=== PATIENT | male | born 1955 | race Hispanic/Latino ===

== ENCOUNTER 2019-09-02 05:58 | Day surgery (SDC) | payer MEDICARE ==
--- NOTE | 2019-09-01 10:52 | RAD REPORT ---
EXAM DESCRIPTION: Karol Pa And Lat (2 Views)09/01/2019 10:39 am CLINICAL HISTORY: Preop COMPARISON: None FINDINGS: 7 mm nodular opacity overlies the right lung base. The left lung appears clear of acute in filtrate. The heart is normal size IMPRESSION: 7 mm nodular opacity overlying right base may represent a nipple shadow or pulmonary nod ule. It is recommended that the patient have frontal and oblique views of the chest with a nipple mar ker for further evaluation
[2019-09-01 11:00] LABS: Absolute Lymphocytes (CBC) 1.2 K/uL (0.7-4.9); Basophils % 0.6 % (0-1.3); Hematocrit 51.6 % (39.6-49.0); Lymphocytes % 29.3 % (15.3-44.8); MPV 10.4 fL (7.6-11.3); RBC Red Blood Cell Count 5.74 M/uL (4.33-5.43)
[2019-09-01 11:01] LABS: Potassium 4.8 mmol/L (3.5-5.1)
--- NOTE | 2019-09-01 11:25 | EKG ---
Test Date: 2019-09-01 Test Time: 10:20:08 Medicare Specialist: TJ MEASUREMENT RESULTS: Intervals: Rate: 76 WV: 158 QRSD: 92 QT: 412 QTc: 463 Hardy: P: 41 WV: 158 QRS: -2 T: 4 INTERPRETIVE STATEMENTS: Normal sinus rhythm Normal ECG No previous ECG available for comparison Electronically Signed On 09-01-19 11:24:46 [employer] by Willem Draper
--- OUTSIDE RECORDS SUMMARY | 2019-09-02 05:59 | XMS REPORT ---
:1955 Author Organization [employer] Care Team Providers Name Role Phone Nyasia Thomasonh Provider Role Unavailable Allergies, Adverse Reactions, Alerts Substance Reaction Event Type N.K.D.A. Info Not Available Non Drug Allergy Problems Problem Type Condition Code Onset Dates Condition Status Assessment Elevated BP without diagnosis of R03.0 Active hypertension Assessment Encounter for wellness examination Z00.00 Active in adult Assessment Encounter for screening for other Z11.59 Active viral diseases Assessment Need for Tdap vaccination Z23 Active Assessment Need for pneumococcal vaccine Z23 Active Assessment Screening for colon cancer Z12.11 Active Assessment Need for influenza vaccination Z23 Active Medications No Known Medications Results No Known Results Immunizations Vaccine Administration Date TDAP > 7 Years-Adacel Aug 24, 2019 Prevnar 13 -Pneumonia Vaccine Aug 24, 2019 Fluzone Aug 24, 2019 Summary Purpose [employer] Submission
[2019-09-02] MEDS ORDERED: Ringers Lactate 1,000 ML IV ONE (06:22)
[2019-09-02] MEDS ORDERED: EPHEDRINE SULF 50 MG/ML VIAL ONE (06:43)
[2019-09-02] MEDS ORDERED: LIDOCAINE 1% MPF 2 ML AMPULE ONE (06:43)
[2019-09-02] MEDS ORDERED: propofoL 200 MG/20 ML VIAL IV ONE (06:43)
[2019-09-02] MEDS ORDERED: GLYCOPYRROLATE 0.2 MG/ML SYR ONE (06:43)
[2019-09-02] MEDS ORDERED: EPINEPHRINE/PF 1 MG/ML AMP ONE (06:53)
--- NOTE | 2019-09-02 07:23 | ENDO RPT ---
[address], [address] COLONOSCOPY PROCEDURE REPORT EXAM DATE: 09/02/2019 PATIENT NAME: Raman Watts MR #: [id number] BIRTHDATE: 1955 ATTENDING: Robert Nova M.D. STATUS: outpatient DIRECTOR OF OCCUPATIONAL THERAPY: Karsten Jama CST and Keri Stockton RN INDICATIONS: The patient is a 64 yr old Male here for a colonoscopy due to colon cancer screening PROCEDURE PERFORMED: Screening Colonoscopy MEDICATIONS: Per Anesthesia. ESTIMATED BLOOD LOSS: None CONSENT: The patient understands the risks and benefits of the procedure and understands that these risks include, but are not limited to: sedation, allergic reaction, infection, perforation and/or bleeding. Alternative means of evaluation and treatment include, among others: physical exam, x-rays, and/or surgical intervention. The patient elects to proceed with this endoscopic procedure. DESCRIPTION OF PROCEDURE: During intra-op preparation period all mechanical medical equipment was checked for proper function. Hand hygiene and appropriate measures for infection prevention was taken. Procedure, possible complications, alternatives including, but not limited to possibility of bleeding, perforation, tear, infection, sepsis, need for surgery, need for blood transfusion, were explained to the patient. After the risks, benefits and alternatives of the procedure were thoroughly explained, Informed consent was verified, confirmed and timeout was successfully executed by the treatment team. The patient was placed in the left lateral position. A digital rectal exam was performed and revealed an enlarged prostate. After appropriate level of anesthesia, the scope was passed. The [id number] ([id number]) endoscope was introduced through the anus and advanced to the cecum, which was identified by the ileocecal valve. The quality of the prep was good. The instrument was then slowly withdrawn as the colon was fully examined. Scope withdrawal time was 10 minutes. COLON FINDINGS: A normal appearing cecum, ileocecal valve, and appendiceal orifice were identified. the ascending, transverse, descending, sigmoid colon, and rectum appeared unremarkable. Retroflexed views revealed no abnormalities and Retroflexed views revealed no abnormalities. The scope was then completely withdrawn from the patient and the procedure terminated. ADVERSE EVENTS: There were no complications. 09/02/2019 IMPRESSIONS: A normal appearing cecum, ileocecal valve, and appendiceal orifice were identified. the ascending, transverse, descending, sigmoid colon, and rectum appeared unremarkable RECOMMENDATIONS: 1. follow-up: office 1 week(s) 2. fiber rich diet RECALL: Return in 10 year(s) for Colonoscopy. Robert Nova M.D. eSigned: Robert Nova M.D. 09/02/2019 7:23 AM cc: Tyler Thomason MD CPT CODES: ICD9 CODES: 600.0 Hypertrophy (benign) of prostate PATIENT NAME: Raman Watts MR#: [id number]
[2019-09-02 07:46] VITALS: TEMP 97.4
[2019-09-02 07:51] VITALS: BP 152/96; O2SAT 98
--- NOTE | 2019-09-02 09:01 | RAD REPORT ---
EXAM DESCRIPTION: RAD - Chest W Obliques - 09/02/2019 8:16 am CLINICAL HISTORY: Pulmonary nodule FINDINGS: Frontal and oblique views of the chest with nipple markers obtained On the frontal view the nipple marker is in the same vicinity as the nodular opacity seen on the prio r chest x-ray. The nodular opacity is not as well seen on the current frontal view. On the oblique views the nodular opacity is also not as well seen. It is probable that the nodular opacity seen on the prior chest x-ray represents a nipple shadow. As a precaution it is recommended that the patient have a followup chest film with nipple marker in 3 mo nths for re-evaluation
== END 2019-09-02 08:19 | disposition home or self-care (01) ==
LOC: OR 05:58
PROVIDERS: ATTEND Surgery
PROC: 0DJD8ZZ Inspection of Lower Intestinal Tract, Via Natural or Artificial Opening Endoscopic (ICD-10-PCS; principal; 2019-09-02 07:00)
DX: Z12.11 Encounter for screening for malignant neoplasm of colon (principal)
CPT/HCPCS: 93005; 85025; 80048; 36415; 71046; 71048; J2704; J2001; J7120; G0121; J0171